=== PATIENT | male | born 1960 | race Caucasian/White ===

== ENCOUNTER 2016-10-19 16:29 | Emergency (ER) | payer OTHER, MEDICAID ==
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
[2016-10-19 18:25] VITALS: BP 130/93; PULSE 76; RESP 16; TEMP 98.2; O2SAT 94
== END 2016-10-19 18:27 | disposition home or self-care (01) ==
DX: S16.1XXA Strain of muscle, fascia and tendon at neck level, initial encounter (principal); B20 Human immunodeficiency virus [HIV] disease; V49.40XA Driver injured in collision with unspecified motor vehicles in traffic accident, initial encounter; Y92.410 Unspecified street and highway as the place of occurrence of the external cause; Y99.8 Other external cause status; Y93.89 Activity, other specified